=== PATIENT | male | born 1975 | race Caucasian/White ===

== ENCOUNTER 2017-10-06 09:18 | Emergency (ER) | payer SELFPAY ==
[2017-10-06 09:36] VITALS: BP 127/76; PULSE 71; RESP 20; TEMP 97.8; O2SAT 98
--- NOTE | 2017-10-06 10:40 | C.PDOC ---
History Of Present Illness 42 y/o male presents to the ER complaining of a strange, burning sensation in his arms and legs which has been present for 3 weeks. 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 He does high intensity exercises and works out 7 times a week. He takes multiple supplements which are not prescribed and contain hormones and stimulating precursors. Time Seen by Provider: 10/06/17 10:27 Chief Complaint (Nursing): Upper Extremity Problem/Injury History Per: Patient History/Exam Limitations: no limitations Onset/Duration Of Symptoms: Days Current Symptoms Are (Timing): Still Present Severity: Moderate Past Medical History Reviewed: Historical Data, Nursing Documentation, Vital Signs Vital Signs: Last Vital Signs Temp 97.8 F 10/06/17 09:33 Pulse 71 10/06/17 09:33 Resp 20 10/06/17 09:33 BP 127/76 10/06/17 09:33 Pulse Ox 98 10/06/17 11:07 - Medical History PMH: No Chronic Diseases Surgical History: No Surg Hx Family History: States: No Known Family Hx - Social History Hx Tobacco Use: No Hx Alcohol Use: No Hx Substance Use: No - Immunization History Hx Tetanus Toxoid Vaccination: No Hx Influenza Vaccination: No Hx Pneumococcal Vaccination: No Review Of Systems Neurological: Positive for: Other (burning sensation in arms and legs). Negative for: Weakness Physical Exam - Physical Exam Appears: Non-toxic, No Acute Distress Skin: Normal Color, Warm Head: Atraumatic, Normacephalic Eye(s): bilateral: Normal Inspection, PERRL Nose: Normal Oral Mucosa: Moist Neck: Supple Chest: Symmetrical Cardiovascular: Rhythm Regular Respiratory: Normal Breath Sounds, No Accessory Muscle Use, No Rales, No Rhonchi , No Wheezing Extremity: Normal ROM, No Tenderness, No Swelling Neurological/Psych: Oriented x3, Normal Speech, Normal Cognition, Normal Motor, Normal Sensation ED Course And Treatment O2 Sat by Pulse Oximetry: 98 (RA) Pulse Ox Interpretation: Normal Medical Decision Making Medical Decision Making: mild pins/tingling sensation is symmetrical all extremities with normal neuro exam, more likely related to environmental compliance engineer supplements Asked to d/c supplements (stimulants and testosterone precursors) and re-eval in 2-3 weeks outpatient MRI Brain/C-spine if s/s to not diminish- refer to Clinic. Disposition Doctor Will See Patient In The: Office Counseled Patient/Family Regarding: Studies Performed, Diagnosis - Disposition Referrals: [facility] [Outside] Disposition: HOME/ ROUTINE Disposition Time: 10:39 Condition: GOOD Additional Instructions: stop all bodybuilding supplements- hormone and stimulant precursors- for 2 weeks and re-eval tingling sensation Follow-up in our outpatient Family Practice Clinic to consider Neuro referral and labs/MRI brain/C-Spine if s/s do not diminish as above. Forms: General Discharge Instructions, [facility] (Greek) - Clinical Impression Clinical Impression: Tingling - Scribe Statement The provider has reviewed the documentation as recorded by the Leeannaibpepe Castillo Provider Attestation: All medical record entries made by the Leeannaibe were at my direction and personally dictated by me. I have reviewed the chart and agree that the record accurately reflects my personal performance of the history, physical exam, medical decision making, and the department course for this patient. I have also personally directed, reviewed, and agree with the discharge instructions and disposition.
== END 2017-10-06 10:54 | disposition home or self-care (01) ==
LOC: C.ER 09:18
DX: R20.2 Paresthesia of skin (principal)